=== PATIENT | female | born 1995 | race Caucasian/White ===

== ENCOUNTER → 2019-05-07 13:54 | Outpatient (CLI) | payer OTHER, SELFPAY ==
--- NOTE | 2019-05-07 14:47 | MRI_ITS ---
STUDY: EXAMINATION - MRV BRAIN WITHOUT CONTRAST REASON FOR EXAM: Female, 24 years old. Sudden vision loss right eye pain and headache TECHNIQUE: 3D uzhu-[id number]-svnwam (TOF) imaging was performed.. Sensitivity limited without axial images. COMPARISON: None. FINDINGS: Normal flow within the superior sagittal sinus. Normal flow within the superficial cortical veins. Normal flow within the paired internal cerebral veins, vein of Sean and straight sinus. Normal flow within the bilateral transverse and sigmoid sinuses. Normal flow within the bilateral jugular bulbs. MRI/MRV Head Without Contrast IMPRESSION: Normal unenhanced MRV of the brain. Electronically Signed: Markus Ramirez MD at 19:28 EDT , Service support ,
--- NOTE | 2019-05-07 14:47 | MRI_ITS ---
STUDY: MRI BRAIN WITH AND WITHOUT CONTRAST REASON FOR EXAM: Female, 24 years old. Vision loss right eye TECHNIQUE: Standardized multiplanar fat and water weighted pulse sequences were obtained. 10 IV Dotarem was administered for the contrast portion of the examination. COMPARISON: None. FINDINGS: Normal size of the ventricles and extra-axial spaces for the patient's age. Normal white matter tracts of the supratentorial brain. Normal bilateral basal ganglia. Normal thalami. There is no extra-axial fluid accumulation. Normal flow voids within the major intracranial circulation suggesting patency by spin echo criteria. Normal venous enhancement. There is no enhancing intra-axial or extra-axial abnormality. Normal sella turcica, pituitary gland, infundibular stalk, optic chiasm and hypothalamus. Normal tectal plate and pineal gland. Normal midbrain, nga and medulla. Normal cerebellum. Normal basal cisterns. Normal bilateral temporal bones. Normal bilateral internal auditory canals. No demonstrated orbital abnormality, within the constraints of a routine brain study. Normal visualized paranasal sinuses. Normal calvarium and skull base. Normal visualized soft tissue structures. Normal visualized upper cervical spine. MRI/Brain W/WO Contrast IMPRESSION: Normal unenhanced and enhanced MRI of the brain. Electronically Signed: Markus Ramirez MD at 17:01 EDT , Service support ,
[2019-05-07 14:57] LABS: Absolute Neutrophil Count 5.8 X10^3/uL (2.0-7.7); Basophil# 0.02 X10^3/uL; Basophil% 0.2 % (0-1); Eosinophil# 0.02 X10^3/uL; Eosinophils% 0.2 % (0-5); Hematocrit 41.3 % (37-47); Hemoglobin 13.9 g/dl (12.0-15.0); Lymphocyte % 33.6 % (19-41); Mean Corp Hgb Conc 33.7 g/gl (32-36); Mean Corpuscular Hgb 29.8 pg (27.0-32.0); Mean Corpuscular Volume 88.6 fL (81-99); Mean Platelet Vol. 9.5 fl (6.2-12.0); Monocyte# 0.45 X10^3/uL; Monocyte% 4.7 % (0-10); Neutrophil # 5.83 X10^3/uL (2.7-7.7); Neutrophil % 61.2 % (47-70); Platelet Count 272 K/mm3 (150-450); RBC Distribution Width CV 12.6 % (11.6-14.6); RBC Distribution Width SD 40.3 fl (35.1-43.9); Red Blood Count 4.66 M/mm3 (4.2-5.4); White Blood Count 9.5 K/mm3 (4.4-11.0)
[2019-05-07 15:00] LABS: POSITIVE COUNT NO; POSITIVE DIFFERENTIAL NO; POSITIVE MORPHOLOGY NO
[2019-05-07 15:01] LABS: Erythrocyte Sedimentation Rate 1 mm/hr (0-20)
[2019-05-07 15:32] LABS: BUN 8 mg/dL (7-18); CRP < 2.90 mg/L (0.0-3.0); Creatinine, Serum 0.79 mg/dL (0.55-1.02); EST Glomerular Filtration Rate 93 mL/min (>60); Est Glom Filt Rate - Afr Amer 112 mL/min (>60)
[2019-05-12 14:51] LABS: Angiotensin Convert Enzyme 21 U/L (14-82)
== END ==
PROVIDERS: Family Provider Family Medicine; PCP Family Medicine; Referring Provider Ophthalmology; Visit Provider Ophthalmology
DX: H53.131 Sudden visual loss, right eye (principal)
CPT/HCPCS: 70544; 70553; 82164; 82565; 84520; 85025; 85652; 86140; A9575

== ENCOUNTER 2025-09-30 08:45 | Emergency (ER) | payer SELFPAY ==
[2025-09-30 08:46] VITALS: BP 119/63; PULSE 96; RESP 16; TEMP 35.9; O2SAT 99
--- NOTE | 2025-09-30 09:25 | EKG12_ITS ---
Test Reason : cp Blood Pressure : */* mmHG Vent. Rate : 84 BPM Atrial Rate : 84 BPM P-R Int : 150 ms QRS Dur : 78 ms QT Int : 332 ms P-R-T Axes : 62 85 46 degrees QTcB Int : 392 ms Normal sinus rhythm Nonspecific ST abnormality Abnormal ECG Confirmed by RAMSEY KELLEY ([id number]), map editor FELICIA GARCIA ([id number]) on 10/05/2025 6:32:10 AM Referred By: Ru/ritu Confirmed By: RAMSEY KELLEY
--- NOTE | 2025-09-30 09:35 | EDS_ITS ---
HPI History of Present Illness Chief Complaint: Chest Pain Informant: patient and family (Father) Narrative Narrative: 30-year-old female presenting to the emergency room with reported syncopal episode this morning. Patient states she gave about 9 months ago. She states she had difficulty getting was found to be hypothyroid and was taking Synthroid during her . She states that after delivery she never restarted the Synthroid after her prescription ran out. She does not have a primary care doctor. She states she was using a fertility doctor that is who found the hypothyroidism. Since giving she states that she has had a c hronic sensation of not being able to take a full breath. She feels generally rundown. She denies any leg swelling cough or fever. She feels at times that her heart is beating out of her chest. She states that today she was carrying a load of laundry up the stairs when she suddenly felt dizzy. She has felt dizzy intermittently over the past 9 months. However this time she states she woke up on the stairs. She did not fall down any stairs. She denies any injuries from passing out. She states that she has a rare blood clotting disorder that only comes out when she is . Is unclear of what that is. She is not on blood thinners and she has never had a pulmonary embolism but she states that a family member has a similar condition and has had a pulmonary embolism. [facility] Medical History (Updated 09/30/25 @ 11:[address] Braydon Huston DO) Hypothyroidism Home Medications ?Medication ?Instructions ?Recorded ?Last Taken ?Type ibuprofen 200 mg tablet (Advil) 400 mg PO Q6H PRN feve r or pain 09/30/25 09/26/25 History Allergy/AdvReac Type Severity Reaction Status Date / Time shellfish derived Allergy Intermediate Hives Verified 09/30/25 08:49 iodine Allergy Hives Verified 09/30/25 08:48 Social History Smoking Status: Never smoker ROS ROS ED ROS Narrative Generalized fatigue dizziness Constitutional Constitutional ED: Denies chills, fever(s) or weight loss Eyes Eyes: Denies change in vision or diplopia ENT ENT ED: Denies ear pain, rhinorrhea or sore throat Cardiovascular Cardiovascular: Reports palpitations and other Details: Syncope ; Denies chest pain, orthopnea or racing heartbeat Respiratory/Chest Respiratory/Chest: Reports dyspnea and dyspnea on exertion; Denies cough or orthopnea Gastrointestinal Gastrointestinal: Denies abdominal pain, diarrhea, nausea or vomiting Genitourinary Genitourinary ED: Denies dysuria, hematuria or urinary frequency Musculoskeletal Musculoskeletal: Denies arthralgias or myalgias Integumentary Denies abscess or rash Neurologic Neurologic: Denies headache(s), paresthesias or weakness Psychiatric Psychiatric: Denies anxiety, depression, suicidal ideation or suicidal thoughts Endocrine Endocrinology: Denies polydipsia, polyphagia or polyuria Allergic/Immunologic Allergic/Immunologic ED: Denies mouth swelling, tongue swelling or urticaria EXAM Physical Exam Const Vital Signs: 09/30/25 08:46 09/30/25 09:46 09/30/25 10:00 Temperature 96.7 F L Temperature Source Temporal Pulse Rate 96 84 84 Pulse Rate [Lying] Pulse Rate [Sitting (for 1 minute prior to obtaining)] Pulse Rate [Standing (for 1 minute prior to obtaining)] Respiratory Rate 16 16 16 Blood Pressure 119/63 107/73 107/73 Blood Pressure [Lying] Blood Pressure [Sitting (for 1 minute prior to obtaining)] Blood Pressure [Standing (for 1 minute prior to obtaining)] Blood Pressure Mean 81 84 84 Blood Pressure Mean [Lying] Blood Pressure Mean [Sitting (for 1 minute prior to obtaining)] Blood Pressure Mean [Standing (for 1 minute prior to obtaining)] Pulse Ox 99 99 99 Oxygen Delivery Method Room Air 09/30/25 11:00 09/30/25 11:08 Temperature Temperature Source Pulse Rate 78 Pulse Rate [Lying] 77 Pulse Rate [Sitting (for 1 minute prior to obtaining)] 79 Pulse Rate [Standing (for 1 minute prior to obtaining)] 111 H Respiratory Rate 20 H Blood Pressure 112/69 Blood Pressure [Lying] 107/67 Blood Pressure [Sitting (for 1 minute prior to obtaining)] 112/69 Blood Pressure [Standing (for 1 minute prior to obtaining)] 112/88 H Blood Pressure Mean 83 Blood Pressure Mean [Lying] 80 Blood Pressure Mean [Sitting (for 1 minute prior to obtaining)] 83 Blood Pressure Mean [Standing (for 1 minute prior to obtaining)] 96 Pulse Ox 100 Oxygen Delivery Method Room Air Positive well nourished and well developed General Appearance ED: well developed and NAD HEENT Reports normocephalic, head/scalp atraumatic and moist mucous membranes Eyes PERRL and EOMs intact bilaterally Neck no lymphadenopathy, supple and no JVD Resp normal respiratory effort and clear to auscultation bilaterally Cardio regular rate, regular rhythm and no murmurs GI normal to inspection, nondistended, normoactive bowel sounds and non-tender Palpation: soft Back/Spine no CVA tenderness and normal ROM Extremity normal to inspection General Extremety ED: Negative for edema General Extremity: Negative for edema Neuro oriented x3 and CN's II-XII intact bilaterally Sensorium / Orientation: alert Motor Exam: strength 5/5 throughout Psych mental status grossly normal Mood & Affect: Negative for depressed or tearful Skin no rashes or lesions noted and no wounds MDM MDM MDM Narrative Medical decision making narrative: Differential diagnosis includes but not limited to thyroid disorder electrolyte abnormalities anemia cardiomyopathy pulmonary embolism POTS cardiac dysrhythmia Patient's EKG is a normal sinus rhythm. Blood work looks normal TSH noted however to be 4.2 but T4 total T4 and free T3 are normal. Urinalysis without any overt infection. Patient does become tachycardic when standing and somewhat dizzy. Raising the possibility of POTS. I do not appreciate any heart murmurs or abnormal lung sounds. I do think the patient would benefit from primary care evaluation follow-up. Will refer her on she understands this. She understands hydration. Return if worsening or concerns History & Record Review Discussion w/independent historian: Patient Lab Data Attestation: I reviewed the patient's lab results. Labs: Laboratory Results - last 24 hr 09/30/25 09/30/25 08:28 11:06 WBC 8.8 RBC 4.57 Hgb 12.6 Hct 38.1 MCV 83.4 MCH 27.6 MCHC 33.1 RDW Std Deviation 42.5 RDW Coeff of Nick 13.9 Plt Count 267 MPV 10.1 Immature Gran % (Auto) 0.200 Neut % (Auto) 57.2 Lymph % (Auto) 30.3 Hall % (Auto) 10.7 H Eos % (Auto) 1.0 Baso % (Auto) 0.6 Absolute Neuts (auto) 5.1 Absolute Lymphs (auto) 2.67 Nucleated RBC % 0 D-Dimer Quant (PE/DVT) 0.42 Sodium 140 Potassium 3.7 Chloride 106 Carbon Dioxide 24.8 Anion Gap 9 BUN 11 Creatinine 0.73 Est GFR (MDRD) Non-Af 111 BUN/Creatinine Ratio 14.7 Glucose 95 Calcium 9.1 Total Bilirubin 0.19 Direct Bilirubin 0.09 AST 14 ALT 7 Alkaline Phosphatase 81 Troponin T High Sens < 6 Total Protein 6.7 Albumin 4.0 Globulin 2.7 TSH 4.230 H Free T4 1.10 Thyroxine (T4) 5.7 Free T3 pg/dL 3.1 Urine Color Yellow Urine Clarity Sl. Cloudy Urine pH 7.0 Ur Specific [place] 1.010 Urine Protein Negative Urine Glucose (UA) Normal Urine Ketones Negative Urine Occult Blood Negative Urine Nitrite Negative Urine Bilirubin Negative Urine Urobilinogen Normal Ur Leukocyte Esterase Negative Urine RBC 0 SEEN Urine WBC 0 SEEN Ur Squamous Epith Cells 0-5 SEEN Urine Bacteria 1+ Urine Mucus 2+ EKG Initial EKG: Attestation: I personally reviewed and interpreted this EKG as follows: Comments: Normal sinus rhythm ventricular rate of 84 bpm Discharge Plan Triage Chief Complaint: Chest Pain ED Provider: Braydon Huston Dx/Rx/DC Orders Clinical Impression: Syncope, Dizziness Instructions: POTS Prescriptions: No Action ibuprofen [Advil] 200 mg tablet 400 mg PO Q6H PRN (Reason: fever or pain) Primary Care Provider: Care Physician,No Primary Referrals: Vincent Chi MD [Med Staff - Licensed Clinical Social Worker, Family Practice] - As soon as possible Care Physician,No Primary [Primary Care Provider, Medical] Print Language: Hong [place]er Disposition Disposition: Home, Self Care
[2025-09-30 09:46] VITALS: BP 107/73; PULSE 84; RESP 16; O2SAT 99
[2025-09-30 09:58] LABS: Hematocrit 38.1 % (37-47); Hemoglobin 12.6 g/dL (12.0-15.0); Immature Granulocytes Count 0.020 X10^3/uL (0.0-0.0); Mean Corp Hgb Conc 33.1 g/dL (32-36); Mean Corpuscular Volume 83.4 fL (81-99); Mean Platelet Vol. 10.1 fl (6.2-12.0); NRBC Flagged by Analyzer 0 % (0-5); Platelet Count 267 K/mm3 (150-450); RBC Distribution Width CV 13.9 % (11.6-14.6); RBC Distribution Width SD 42.5 fl (35.1-43.9); Red Blood Count 4.57 M/mm3 (4.2-5.4); White Blood Count 8.8 K/mm3 (4.4-11.0)
[2025-09-30 10:00] VITALS: BP 107/73; PULSE 84; RESP 16; O2SAT 99
[2025-09-30 10:08] LABS: D-Dimer Quantitative (DVT/PE) 0.42 FEU/ug/m (0.27-0.49)
[2025-09-30 10:16] LABS: Troponin T High Sensitivity < 6 ng/L (<=14)
[2025-09-30 10:26] LABS: AST(SGOT) 14 U/L (<=31); Alanine Aminotransfer ALT/SGPT 7 U/L (<=34); Albumin, Serum 4.0 g/dL (3.5-5.0); Alkaline Phosphatase 81 U/L (35-104); Anion Gap 9 (5-15); BUN 11 mg/dL (4-19); BUN/Creat Ratio 14.7 RATIO (10-20); Bilirubin, Direct 0.09 mg/dL (0.00-0.30); Calcium,Total 9.1 mg/dL (7.6-11.0); Carbon Dioxide 24.8 mmol/L (21.0-32.0); Chloride 106 mmol/L (98-108); Free T3 3.1 pg/mL (2.18-3.98); Globulin 2.7 g/dL (2.2-4.2); Glucose 95 mg/dL (70-99); Potassium 3.7 mmol/L (3.3-5.1); T4 Total, Thyroxin 5.7 ug/dL (4.8-13.9)
[2025-09-30 11:00] VITALS: BP 112/69; PULSE 78; RESP 20; O2SAT 100
--- NOTE | 2025-09-30 11:00 | CM.ED ---
Social work Reason for referral: no PCP/no insurance Referral source: case find SW entered patient's room, introducing self and role at [facility]. Patient welcomed SW visit and patient confirmed not having a PCP and accepted resources of [facility] providers and [facility] information. Patient lives in [place], but states being in the [place] area often due to patient's parents living in [facility] [place] [facility]. Patient stated having insurance through the end of the year, but stated patient's 's job was shutting down and patient would need to apply for Medicaid then. Patient accepted the how to apply for Medicaid paper and SW added [facility] information at the top of the page. Patient discussed the stress behind patient's 9 month old son having optic nerve issues that have resulted in $32k medical bills piling up. Patient stated not caring for self because patient's son needed cared for. SW validated patient, empathized with patient, and reminded patient of need to care for self as well. Patient stated having really bad PPD after son was born. SW provided further resources of [facility] and local counseling resources. Patient denied other needs at this time. Susi Anand, SURGICAL GARMENT ASSEMBLY SUPERVISOR, FILM TESTS CHECKER
[2025-09-30 11:08] VITALS: BP 107/67; BP 112/69; BP 112/88; PULSE 111; PULSE 77; PULSE 79
[2025-09-30 11:09] VITALS: BMI 27.6
[2025-09-30 11:10] LABS: Red Blood Cells-Urine 0 SEEN /hpf (0-5)
[2025-09-30 11:14] LABS: Color, Urine Yellow (Yellow); Glucose, Dipstick Normal (Normal); Ketone-Dipstick Negative (Negative); Leukocyte Esterase-Dipstick Negative /ul (Negative); Nitrite-Dipstick Negative (Negative); Occult Blood-Urine Negative /ul (Negative); Protein-Dipstick Negative (Negative); Specific Gravity, Urine 1.010 (1.002-1.030); Urine Bilirubin Dipstick Negative (Negative)
[2025-09-30 11:24] LABS: Mucous, Urine 2+ /hpf (<or=2+); Squamous Epithelial Cells - UA 0-5 SEEN /hpf (5-10)
[2025-09-30 11:47] VITALS: BP 116/63; PULSE 80; RESP 16; TEMP 36.6; O2SAT 99
== END 2025-09-30 12:03 | disposition home or self-care (01) ==
PROVIDERS: Emergency Provider Emergency Medicine; Visit Provider Emergency Medicine
DX: R55 Syncope and collapse (principal); R42 Dizziness and giddiness
CPT/HCPCS: 80048; 80076; 81001; 84436; 84439; 84443; 84481; 84484; 85025; 85379; 93005; 99285; A4216